=== PATIENT | male | born 1940 | race African-American/Black ===

== ENCOUNTER 2017-01-02 17:03 | Inpatient (IN) | payer MEDICARE, BC ==
[~2017-01-02] VITALS: Ht 175.3 cm; Wt 104.6 kg
[~2017-01-02 17:03] MED LIST: ASPI-630 PO; ATOR10TA60 PO; FENO160T PO; LISI-338 PO; LISI1TAB7 PO; METF750T2 PO; NAPR500T3 PO
[2017-01-02 17:49] LABS: BASO # 0.1 x10^3/uL (0.0-0.2); BASO % 1 % (0-3); EOS % 2 % (0-3); HEMATOCRIT 37.9 % (39.0-53.0); HEMOGLOBIN 12.8 g/dL (13.0-17.5); LYMPH # 3.4 x10^3/uL (1.0-4.8); LYMPH % 38 % (24-48); MEAN CORPUSCULAR HEMOGLOBIN 27 pg (25-35); MEAN CORPUSCULAR HGB CONC 34 g/dL (31-37); MEAN CORPUSCULAR VOLUME 79 fL (79-100); MONO % 10 % (0-9); NEUT % 49 % (31-73); PLATELET COUNT 254 x10^3/uL (140-400); RED BLOOD COUNT 4.82 x10^6/uL (4.30-5.70); RED CELL DISTRIBUTION WIDTH 16.2 % (11.5-14.5); WHITE BLOOD COUNT 8.9 x10^3/uL (4.0-11.0)
--- NOTE | 2017-01-02 17:55 | PHYS DOC ---
Past Medical History Past Medical History: Diabetes-Type II, Hypertension, Other Additional Past Medical Histor: HERNIA Past Surgical History: Angioplasty, Appendectomy, Other Additional Past Surgical Histo: CARDIAC STENTS Additional Information: SMOKES CIGARS SOMETIMES Alcohol Use: None Drug Use: None Adult General Chief Complaint Chief Complaint: SLURRED SPEECH HPI HPI 76-year-old morbidly obese -[place] male with history of tobacco elevated lipids hypertension type 2 diabetes with no insulin use and coronary artery disease with one stent no prior history of stroke now presents to the emergency department after an episode of speech changes. The health enjoying some time in this family when he suddenly perceived dysarthria and difficulty speaking. Words out but the words were not normal. Patient did not have an altered mental status and denies other focal neurologic deficit. No numbness or weakness normal strength sensation and use of extremities. Current baseline. Patient has never had a stroke workup or prior TIA. He does still smoke. No other complaints recent illness or prodromal symptoms. Review of Systems Review of Systems Constitutional: Denies fever or chills [] Eyes: Denies change in visual acuity, redness, or eye pain [] HENT: Denies nasal congestion or sore throat [] Respiratory: Denies cough or shortness of breath [] Cardiovascular: No additional information not addressed in HPI [] GI: Denies abdominal pain, nausea, vomiting, bloody stools or diarrhea [] : Denies dysuria or hematuria [] Musculoskeletal: Denies back pain or joint pain [] Integument: Denies rash or skin lesions [] Neurologic: Per history of present illness Endocrine: Denies polyuria or polydipsia [] Current Medications Current Medications Current Medications Medications (Trade) Dose Ordered Sig/Kin Start Time Stop Time Status Last Admin Dose Admin Aspirin (Children'S Aspirin) 324 mg 1X ONCE 01/02/17 19:30 01/02/17 19:31 DC 01/02/17 19:42 324 MG Naproxen (Naprosyn) 500 mg PRN Q6HRS PRN 01/02/17 19:15 Sodium Chloride 500 ml @ 500 mls/hr 1X ONCE 01/02/17 18:00 01/02/17 18:59 DC 01/02/17 17:47 500 MLS/HR Allergies Allergies Allergies Coded Allergies Type Severity Reaction Last Updated Verified No Known Drug Allergies 10/14/13 No Physical Exam Physical Exam [place] obese elderly male in no acute distress alert communicative and appropriate. Nonfocal neurologic exam including full cranial nerve exam. Normal symmetrical strength sensation and reflexes. Remainder of exam is benign Constitutional: Well developed, well nourished, no acute distress, non-toxic appearance. [] HENT: Normocephalic, atraumatic, bilateral external ears normal, oropharynx mildly dry, no oral exudates, nose normal. [] Eyes: PERRLA, EOMI, conjunctiva normal, no discharge. [] Neck: Normal range of motion, no tenderness, supple, no stridor. [] Cardiovascular:Heart rate regular rhythm, no murmur [] Lungs & Thorax: Bilateral breath sounds clear to auscultation [] Abdomen: Bowel sounds normal, soft, no tenderness, no masses, no pulsatile masses. [] Skin: Warm, dry, no erythema, no rash. [] Back: No tenderness, no CVA tenderness. [] Extremities: No tenderness, no cyanosis, no clubbing, ROM intact, no edema. [] Neurologic: Alert and oriented X 3, normal motor function, normal sensory function, no focal deficits noted. Baseline speech per family Psychologic: Affect normal, judgement normal, mood normal. [] Current Patient Data Vital Signs Vital Signs Date Time Temp Pulse Resp B/P (MAP) Pulse Ox O2 Delivery O2 Flow Rate FiO2 01/02/17 19:07 76 170/79 (109) 100 Room Air 01/02/17 17:03 97.6 18 97.6 Lab Values Laboratory Tests Test 01/02/17 17:20 White Blood Count 8.9 x10^3/uL (4.0-11.0) Red Blood Count 4.82 x10^6/uL (4.30-5.70) Hemoglobin 12.8 g/dL (13.0-17.5) L Hematocrit 37.9 % (39.0-53.0) L Mean Corpuscular Volume 79 fL (79-100) Mean Corpuscular Hemoglobin 27 pg (25-35) Mean Corpuscular Hemoglobin Concent 34 g/dL (31-37) Red Cell Distribution Width 16.2 % (11.5-14.5) H Platelet Count 254 x10^3/uL (140-400) Neutrophils (%) (Auto) 49 % (31-73) Lymphocytes (%) (Auto) 38 % (24-48) Monocytes (%) (Auto) 10 % (0-9) H Eosinophils (%) (Auto) 2 % (0-3) Basophils (%) (Auto) 1 % (0-3) Neutrophils # (Auto) 4.3 x10^3uL (1.8-7.7) Lymphocytes # (Auto) 3.4 x10^3/uL (1.0-4.8) Monocytes # (Auto) 0.9 x10^3/uL (0.0-1.1) Eosinophils # (Auto) 0.2 x10^3/uL (0.0-0.7) Basophils # (Auto) 0.1 x10^3/uL (0.0-0.2) Prothrombin Time 12.8 SEC (11.7-14.0) Prothrombin Time INR 1.0 (0.8-1.1) PTT 32 SEC (24-38) Sodium Level 142 mmol/L (136-145) Potassium Level 4.0 mmol/L (3.5-5.1) Chloride Level 106 mmol/L (98-107) Carbon Dioxide Level 29 mmol/L (21-32) Anion Gap 7 (6-14) Blood Urea Nitrogen 19 mg/dL (8-26) Creatinine 1.0 mg/dL (0.7-1.3) Estimated GFR (Cockcroft-Gault) 87.7 BUN/Creatinine Ratio 19 (6-20) Glucose Level 206 mg/dL (70-99) H Calcium Level 10.0 mg/dL (8.5-10.1) Total Bilirubin 0.3 mg/dL (0.2-1.0) Aspartate Amino Transferase (AST) 18 U/L (15-37) Alanine Aminotransferase (ALT) 18 U/L (16-63) Alkaline Phosphatase 76 U/L (46-116) Troponin I Quantitative 0.028 ng/mL (0.000-0.055) Total Protein 7.0 g/dL (6.4-8.2) Albumin 3.5 g/dL (3.4-5.0) Albumin/Globulin Ratio 1.0 (1.0-1.7) Laboratory Tests 01/02/17 17:20 Laboratory Tests 01/02/17 17:20 EKG EKG EKG normal sinus rhythm at 53 left axis deviation no STEMI interpreted by me [] Radiology/Procedures Radiology/Procedures Portable chest x-ray CT of the head without contrast [] Course & Med Decision Making Course & Med Decision Making Pertinent Labs and Imaging studies reviewed. (See chart for details) Signs and symptoms consistent with transient ischemic attack in a patient with no prior history of stroke or TIA. He does have multiple risk factors and states he is compliant with his medications. Patient is returned to baseline with a nonfocal neurologic exam. Full workup pending including lab CT and chest x-ray. EKG unremarkable as stated above. Anticipate admission for full TIA workup and if CT is unremarkable with no evidence of bleed, Aspirin will be given. CT of the head unremarkable. Case discussed with capsule. Dr. Martinez is aware of history and findings and agrees with inpatient admission to his service for full stroke workup. [] Dragon Disclaimer Dragon Disclaimer This electronic medical record was generated, in whole or in part, using a voice recognition dictation system. Departure Departure Impression: Primary Impression: TIA (transient ischemic attack) Disposition: ADMITTED INPATIENT Admitting Physician: Nayely Martinez Condition: STABLE BRIAN BALL MD Jan 02, 2017 17:55
[2017-01-02 18:00] LABS: PROTHROMBIN TIME PATIENT 12.8 SEC (11.7-14.0)
[2017-01-02] MEDS ORDERED: IV NORMAL SALINE 500ML BAG 500 ML IV ONE (18:00)
--- NOTE | 2017-01-02 18:15 | RAD ---
CT HEAD WO CONTRAST dated 01/02/2017 5:50 PM Indication: Slurred speech Comparison: No comparison is available. Technique: Contiguous axial imaging of the head performed from skull base to vertex. One or more of the following individualized dose reduction techniques were utilized for this examination: 1. Automated exposure control 2. Adjustment of the mA and/or kV according to patient size 3. Use of iterative reconstruction technique Findings: Ventricles and sulci are mildly prominent for age. No midline shift or mass effect. Mild to moderate patchy low density in the deep/subcortical periventricular white matter. No hemorrhage or extra-axial collection. Posterior fossa and brainstem unremarkable. Visualized paranasal sinuses and mastoid air cells are clear. Remote-appearing medial orbital blowout fracture on the right. No acute calvarial abnormality. IMPRESSION: 1. No evidence of acute intracranial hemorrhage or mass. 2. Mild chronic small vessel ischemic changes and atrophy. Electronically signed by: Cy Stubbs MD (01/02/2017 6:12 PM)
[2017-01-02 18:25] LABS: GFR 87.7
[2017-01-02 18:31] LABS: ALBUMIN 3.5 g/dL (3.4-5.0); TOTAL BILIRUBIN 0.3 mg/dL (0.2-1.0)
[2017-01-02] MEDS ORDERED: NAPROXEN 500 MG TABLET PO PRN (19:15)
[2017-01-02] MEDS ORDERED: ASPIRIN CHEWABLE 81 MG TABLET. PO ONE (19:30)
[2017-01-02] MEDS: LISINOPRIL 5 MG TABLET. PO SCH (20:44)
[2017-01-02] MEDS ORDERED: ATORVASTATIN CALCIUM 10 MG TABLET. PO SCH (21:00)
[2017-01-02 21:21] VITALS: BP 151/81
--- NOTE | 2017-01-02 22:11 | HP ---
ADMIT DATE: 01/02/2017 CHIEF COMPLAINT: Slurred speech. HISTORY OF PRESENT ILLNESS: The patient is a pleasant, elderly, -[place]ian male, who had weakness, slurred speech earlier rated 7/10. He has some associated anxiety and weakness. He presented to the ER, he is on daily aspirin. The CAT scan of his brain really has small vessel disease and atrophy. His symptoms are starting to resolve, we suspect he had a TIA. I discussed the case with the ER physician and his daughter ____. We are going to admit the patient and consult Neurology. PAST MEDICAL HISTORY: Hypertension, diabetes and hyperlipidemia. ALLERGIES: None. FAMILY HISTORY: Diabetes. SOCIAL HISTORY: Does not drink, smoke or take drugs. He was in the . MEDICATIONS: Reviewed, please refer to the MRAD. REVIEW OF SYSTEMS: GENERAL: No history of weight change, weakness or fevers. SKIN: No bruising, hair changes or rashes. EYES: No blurred, double or loss of vision. NOSE AND THROAT: No history of nosebleeds, hoarseness or sore throat. HEART: No history of palpitations, chest pain or shortness of breath on exertion. LUNGS: Denies cough, hemoptysis, wheezing or shortness of breath. GASTROINTESTINAL: Denies changes in appetite, nausea, vomiting, diarrhea or constipation. GENITOURINARY: No history of frequency, urgency, hesitancy or nocturia. NEUROLOGIC: He complains weakness ____ feeling better. PSYCHIATRIC: No history of panic, anxiety or depression. ENDOCRINE: No history of heat or cold intolerance, polyuria or polydipsia. EXTREMITIES: Denies muscle weakness, joint pain, pain on walking or stiffness. PHYSICAL EXAMINATION: VITAL SIGNS: Temperature afebrile, pulse 92, respirations 18, blood pressure 111/68, O2 sat 96% on room air. GENERAL: He is alert, cooperative, very pleasant. His daughter is present. She is a good support for him. She is quite anxious about his care. HEART: Distant S1, S2. LUNGS: Clear. ABDOMEN: Soft, positive bowel sounds. EXTREMITIES: 1+ edema. SKIN: No rashes. PSYCHIATRIC: Stable. VASCULAR: Good capillary refill. ENDOCRINE: No thyromegaly. LYMPHATICS: No cervical nodes. HEMATOPOIETIC: No bruising. LABORATORY DATA: White count 9, hemoglobin 12.8, platelets 254. Electrolytes are normal. Troponin 0.028. CT of the head shows atrophy and small vessel disease. ASSESSMENT AND PLAN: Probable transient ischemic attack. The patient has been admitted. We will consult neurology, PT, OT. Daily labs, resume home medicines, but I held his metformin, because he probably has some contrast. PROGNOSIS: Guarded. NIAL Yulisa MAY DO DR: DONG/malgorzata JOB#: [id number] / [id number] OTF Uriostegui MD
[2017-01-02 23:09] VITALS: BP 171/84
[2017-01-03 03:04] VITALS: BP 148/71
--- NOTE | 2017-01-03 04:24 | ACF ---
Admission Forms Criteria TELEMETRY CARE Telemetry Admission Guidelines (Place 'X' for any and all applicable criteria): Admission to telemetry [A] may be indicated for ANY ONE of the following(1)(2)(3 )(4)(5): [ ]I. Cardiac disease, including ANY ONE of the following (9)(10)(11)(12)(13 ): [ ]a) Postacute UT [ ]b) Low-risk patients with ST-segment elevation UT who have undergone successful percutaneous coronary intervention [ ]c) Unstable angina [ ]d) Suspected UT (until it is ruled out) [ ]e) Post cardiac surgery (first 48 to 72 hours unless complications occur) [ ]f) Acute arrhythmias (including significant tachycardia or bradycardia) [B] [ ]g) Firing of an implantable cardioverter defibrillator [C] [ ]h) Suspected pacemaker or implantable cardioverter defibrillator malfunction (10) [ ]i) New administration or adjustment of an antiarrhythmic drug [D ] [ ]j) Child admitted for acute congestive heart failure [ ]j) Long QT syndrome [ ]k) Advanced heart block (eg, second-degree Mobitz type II, third- degree heart block) [ ]l) Acute myocarditis or pericarditis [ ]m) Short-term (ambulatory or inpatient) monitoring after a cardiac procedure as indicated by ANY ONE of the following [E]: [ ]i) Electrophysiologic studies [ ]ii) Percutaneous coronary intervention with stent placement [ ]iii) Pacemaker placement with cardiac conduction defect [ ]iv) Implantable cardiac defibrillator placement [ ]II. Drug overdose or poisoning with substance that causes arrhythmias or QT prolongation (eg, phenothiazines, sympathomimetic agents, cyclic antidepressants, digitalis, antiarrhythmic drugs)(15) [ ]III. Short-term (ambulatory or inpatient) monitoring after therapeutic or diagnostic procedure requiring conscious sedation or anesthesia (eg, endoscopy, elective cardioversion) [X]IV. Acute cerebrovascular even[F](18) [ ]V. Massive blood transfusion (eg, at least 10 units of packed red blood cells in 24 hours) [ ]. Variceal bleeding after endoscopy, sclerotherapy, or IV vasopressin [ ]VII. Uncorrected electrolyte abnormalities associated with an increased risk of dangerous arrhythmia [G]; examples include [ ]a) Hyperkalemia with attributable ECG changes [ ]b) Potassium greater than 6.5 mmol/L (mEq/L) in a patient without history of chronic renal disease [ ]c) Prolonged QT attributed to hypokalemia, hypomagnesemia, or hypocalcemia [ ]VIII.Unexplained syncope or other neurologic event suspected of being due to arrhythmia due to a finding that increases risk; examples include(19)(20)(21): [ ]a) High-risk ECG findings (eg, bifascicular block, bradycardia, abnormal QT interval, ventricular pre- excitation) [ ]b) History of previous syncope due to arrhythmia [ ]c) Abnormal ventricular function (eg, reduced ejection fraction ) [ ]d) Exertional or supine syncope [ ]e) Concerning syncope characteristics (eg, sudden loss of consciousness without prodrome) [ ]f) Family history of sudden [ ]g) Use of arrhythmogenic medication [ ]h) Suspected cardiac ischemia [ ]i) Known channelopathy (eg, long QT syndrome, Brugada syndrome, or catecholaminergic paroxysmal ventricular tachycardia) [ ]j) Known structural heart disease (eg, hypertrophic cardiomyopathy , severe valvular disease) [ ]k) Palpitations preceding syncope The original [employer] content created by [employer] has been revised. The portions of the content which have been revised are identified through the use of italic text or in bold, and [facility] has neither reviewed nor approved the modified material. All other unmodified content is copyright [employer]. Please see references footnoted in the original [employer] edition 2016 Admission Criteria Met?: Yes TRACY RICHARDSON Jan 03, 2017 04:24
[2017-01-03 07:14] VITALS: BP 102/55
[2017-01-03] MEDS: LISINOPRIL 5 MG TABLET. PO SCH (08:39)
--- NOTE | 2017-01-03 08:50 | EKG ---
[facility] [address] [place] [address] Test Date: 2017-01-02 Test Time: 17:33:11 Pat Name: GORAN MORALES Department: Room: Gender: M Teaching Manager: : 1940 Requested By: BRIAN BALL Order Number: [id number] Reading MD: Measurements Intervals [place] Rate: 83 P: 53 MI: 178 QRS: -56 QRSD: 122 T: 12 QT: 380 QTc: 452 Interpretive Statements SINUS RHYTHM ABNORMAL LEFT AXIS DEVIATION LEFT ANTERIOR FASCICULAR BLOCK LEFT VENTRICULAR HYPERTROPHY QRS(T) CONTOUR ABNORMALITY CANNOT RULE OUT ANTEROSEPTAL MYOCARDIAL DAMAGE CANNOT RULE OUT INFERIOR MYOCARDIAL DAMAGE RI6.01 Unconfirmed report No previous ECG available for comparison
[2017-01-03] MEDS ORDERED: ASPIRIN CHEWABLE 81 MG TABLET. PO SCH (09:00)
[2017-01-03 11:01] VITALS: BP 108/65
[2017-01-03] MEDS ORDERED: GABA-586 PO (12:20)
--- NOTE | 2017-01-03 12:39 | PDOC2 ---
NEUROLOGY CONSULT Date of Admission Date of Admission DATE: 01/03/17 TIME: 12:33 Reason for Consult Reason for Consult: IMPRESSION: TIA, most likely. Slurred speech, weakness and confusion, all resolved. HTN HLD DM CAD, s/p stent placement. Smoking. Obesity. RECOMMENDATIONS/PLAN: Continue ASA, increased from 81 mg to 325 mg daily. Continue Lipitor HS. Brain MRI w/o contrast, the patient and family wanted to do it as outpatient basis. Order given them. FU with PCP. FU with Neurology after MRI. Discussed with him and his family in detail at bedside. HCT: Negative for acute findings. Echo: Unremarkable. HISTORY OF THE PRESENT ILLNESS: 76-y-old AA male patient with above medical diseases had symptoms of slurred speech for about 2 minutes per his son. The patient stated he had weakness in his UE bilaterally at that time, but resolved in a few minutes. His LE were not affected. His noted some mental status changes as confusion but resolved not long after. No recurrent symptoms since. PAST MEDICAL HISTORY: Please see above. PAST SURGERY HISTORY: Cardiac stent placement Tonsillectomy ALLERGY: Reviewed. MEDICATIONS: Refer to [facility] FAMILY HISTORY: Non contributory. SOCIAL HISTORY: Lives at home. Denies drinking and illicit drug use. He smokes 4-5 cigars a day for many years than he can remember. REVIEW OF SYSTEMS: Constitutional: No malnutrition, weight loss, cachexia. Head: No traumatic brain or head injury. Skin: No edema, or rash. Ear: No infection. Eyes: No vision loss or color blindness. Nose: No bleeding or purulent discharges. Hearing: mild hearing decrease. Neck: No injury. Cardiac: CAD, s/p stent placement, HTN, HLD. Pulmonary: No pneumonia, COPD. GI: No GI ulcer, GI bleeding. Urinary/genital: UTI. Endocrinologic: Diabetes Mellitus, obesity. Skeletomuscular: No muscular atrophy, deformity. Neurological: see HP. Psychiatric: Denies drug use/abuse. Otherwise, not [id number] review of systems. PHYSICAL EXAMINATION: General appearance is in no acute distress. HEENT: Normocephalic and nontraumatic. Eyes, nose, ears, and throat are unremarkable. Neck is supple. No lymphadenopathy. No bruits are heard over the carotid artery. No crepitus. Cardiovascular: S1, S2, regular rate and rhythm. Pulmonary: Clear to auscultation bilaterally. Abdomen: Bowel sounds are positive. Abdomen is soft, nontender, and nondistended. Extremities: No rash, lesions, or edema. No restriction of range of motion NEUROLOGICAL EXAMINATION: Alert Oriented to time, place and person. Speech normal. PERRL. EOMI. CN: no focal findings. Muscle tone: within normal. Muscle strength: 5 DTR: 2 Plantar reflex: Flexor response bilaterally Gait: At baseline normal. Sensory exam: no abnormal findings. No acute cerebellar signs elicited. F-T-N test accurate bilaterally. RECOMMENDATIONS/PLAN: HISTORY OF THE PRESENT ILLNESS: PAST MEDICAL HISTORY: Please see above. PAST SURGERY HISTORY: Pacemaker Placement, S/P CABG, Tonsillectomy, Appendectomy , Cholecystectomy, Hysterectomy, Hernia Repair, Neck, Shoulder, Knee surgery, No major surgery recently. ALLERGY: NKDA Unknown MEDICATIONS: Refer to [facility] FAMILY HISTORY: HTN, HLD, DM, CAD, PD, Dementia, Non contributory. SOCIAL HISTORY: Lives alone. Lives in retirement. Denies smoking, drinking, and illicit drug use. He She smokes pack of cigarettes a day for years. He She drinks OZ alcohol a day for years. REVIEW OF SYSTEMS: Constitutional: No malnutrition, weight loss, cachexia. Head: No traumatic brain or head injury. Skin: No edema, or rash. Ear: No infection, tinnitus. Eyes: No vision loss or color blindness. Nose: No bleeding or purulent discharges. Hearing: No hearing decrease. Neck: No injury. Breast: No history of cancer, masses,or discharges. Cardiac: No [place], arrhythmia,claudication, CAD, s/p CABG, AFib, Pacemaker Placement, HTN, HLD. Pulmonary: No pneumonia, COPD. GI: No GI ulcer, GI bleeding, GERD. Urinary/genital: No dysuria, hematuria, incontinence, urinary retention, UTI. Endocrinologic: No cousin face, craniofacial dysmorphism, polydactyly, goiter, Diabetes Mellitus, hypothyroidism, obesity, morbid obesity. Skeletomuscular: No muscular atrophy, deformity, Generalized weakness. Neurological: see HP. Psychiatric: Denies drug use/abuse. Otherwise, not [id number] review of systems. PHYSICAL EXAMINATION: General appearance is in no acute distress. HEENT: Normocephalic and nontraumatic. Eyes, nose, ears, and throat are unremarkable. Neck is supple. No lymphadenopathy. No bruits are heard over the carotid artery. No crepitus. Cardiovascular: S1, S2, regular rate and rhythm. Pulmonary: Clear to auscultation bilaterally. Abdomen: Bowel sounds are positive. Abdomen is soft, nontender, and nondistended. Extremities: No rash, lesions, or edema. No restriction of range of motion NEUROLOGICAL EXAMINATION: Alert Oriented to time, place and person. PERRL. EOMI. CN: no focal findings. Muscle tone: within normal. Muscle strength: 5 DTR: 2 Plantar reflex: Flexor/Neutral response bilaterally Gait: not examined in bed. At baseline normal. Sensory exam: no abnormal findings. No cerebellar signs elicited. F-T-N test accurate. Current Medications Current Medications Current Medications Sodium Chloride 500 ml @ 500 mls/hr 1X ONCE IV Last administered on 17:47; Start 01/02/17 at 18:00; Stop 01/02/17 at 18:59; Status DC Aspirin (Children'S Aspirin) 81 mg DAILY PO Last administered on 01/03/17 08: 36; Start 01/03/17 at 09:00 Atorvastatin Calcium (Lipitor) 10 mg HS PO ; Start 01/02/17 at 21:00 Lisinopril (Prinivil) 5 mg DAILY PO Last administered on 01/03/17 08:39; Start 01/02/17 at 20:00 Naproxen (Naprosyn) 500 mg PRN Q6HRS PRN PO PAIN; Start 01/02/17 at 19:15 Aspirin (Children'S Aspirin) 324 mg 1X ONCE PO Last administered on 01/02/17 19:42; Start 01/02/17 at 19:30; Stop 01/02/17 at 19:31; Status DC Active Scripts Active Reported Neurontin (Gabapentin) 300 Mg Capsule 300 Mg PO DAILY Lisinopril 5 Mg Tablet 5 Mg PO DAILY Naproxen 500 Mg Tablet 500 Mg PO PRN Q6HRS Fenofibrate 160 Mg Tablet 160 Mg PO Atorvastatin Calcium 10 Mg Tablet 10 Mg PO HS Aspirin 81 Mg Tab.chew 81 Mg PO DAILY Metformin Hcl Er (Metformin Hcl) 750 Mg Tab.er.24h 750 Mg PO DAILY Allergies Allergies: Coded Allergies: No Known Drug Allergies (Unverified , 10/14/13) Vitals VITALS Vital Signs Date Time Temp Pulse Resp B/P (MAP) Pulse Ox O2 Delivery O2 Flow Rate FiO2 01/03/17 11:01 97.9 71 20 108/65 (79) 96 Room Air 97.9 Labs Labs Laboratory Tests Test 01/02/17 17:20 01/03/17 07:19 01/03/17 11:30 White Blood Count 8.9 x10^3/uL (4.0-11.0) Red Blood Count 4.82 x10^6/uL (4.30-5.70) Hemoglobin 12.8 g/dL (13.0-17.5) Hematocrit 37.9 % (39.0-53.0) Mean Corpuscular Volume 79 fL (79-100) Mean Corpuscular Hemoglobin 27 pg (25-35) Mean Corpuscular Hemoglobin Concent 34 g/dL (31-37) Red Cell Distribution Width 16.2 % (11.5-14.5) Platelet Count 254 x10^3/uL (140-400) Neutrophils (%) (Auto) 49 % (31-73) Lymphocytes (%) (Auto) 38 % (24-48) Monocytes (%) (Auto) 10 % (0-9) Eosinophils (%) (Auto) 2 % (0-3) Basophils (%) (Auto) 1 % (0-3) Neutrophils # (Auto) 4.3 x10^3uL (1.8-7.7) Lymphocytes # (Auto) 3.4 x10^3/uL (1.0-4.8) Monocytes # (Auto) 0.9 x10^3/uL (0.0-1.1) Eosinophils # (Auto) 0.2 x10^3/uL (0.0-0.7) Basophils # (Auto) 0.1 x10^3/uL (0.0-0.2) Prothrombin Time 12.8 SEC (11.7-14.0) Prothromb Time International Ratio 1.0 (0.8-1.1) Activated Partial Thromboplast Time 32 SEC (24-38) Sodium Level 142 mmol/L (136-145) Potassium Level 4.0 mmol/L (3.5-5.1) Chloride Level 106 mmol/L (98-107) Carbon Dioxide Level 29 mmol/L (21-32) Anion Gap 7 (6-14) Blood Urea Nitrogen 19 mg/dL (8-26) Creatinine 1.0 mg/dL (0.7-1.3) Estimated GFR (Cockcroft-Gault) 87.7 BUN/Creatinine Ratio 19 (6-20) Glucose Level 206 mg/dL (70-99) Calcium Level 10.0 mg/dL (8.5-10.1) Total Bilirubin 0.3 mg/dL (0.2-1.0) Aspartate Amino Transf (AST/SGOT) 18 U/L (15-37) Alanine Aminotransferase (ALT/SGPT) 18 U/L (16-63) Alkaline Phosphatase 76 U/L (46-116) Troponin I Quantitative 0.028 ng/mL (0.000-0.055) Total Protein 7.0 g/dL (6.4-8.2) Albumin 3.5 g/dL (3.4-5.0) Albumin/Globulin Ratio 1.0 (1.0-1.7) Glucose (Fingerstick) 145 mg/dL (70-99) 179 mg/dL (70-99) Laboratory Tests Test 01/02/17 17:20 01/03/17 07:19 01/03/17 11:30 White Blood Count 8.9 x10^3/uL (4.0-11.0) Red Blood Count 4.82 x10^6/uL (4.30-5.70) Hemoglobin 12.8 g/dL (13.0-17.5) Hematocrit 37.9 % (39.0-53.0) Mean Corpuscular Volume 79 fL (79-100) Mean Corpuscular Hemoglobin 27 pg (25-35) Mean Corpuscular Hemoglobin Concent 34 g/dL (31-37) Red Cell Distribution Width 16.2 % (11.5-14.5) Platelet Count 254 x10^3/uL (140-400) Neutrophils (%) (Auto) 49 % (31-73) Lymphocytes (%) (Auto) 38 % (24-48) Monocytes (%) (Auto) 10 % (0-9) Eosinophils (%) (Auto) 2 % (0-3) Basophils (%) (Auto) 1 % (0-3) Neutrophils # (Auto) 4.3 x10^3uL (1.8-7.7) Lymphocytes # (Auto) 3.4 x10^3/uL (1.0-4.8) Monocytes # (Auto) 0.9 x10^3/uL (0.0-1.1) Eosinophils # (Auto) 0.2 x10^3/uL (0.0-0.7) Basophils # (Auto) 0.1 x10^3/uL (0.0-0.2) Prothrombin Time 12.8 SEC (11.7-14.0) Prothromb Time International Ratio 1.0 (0.8-1.1) Activated Partial Thromboplast Time 32 SEC (24-38) Sodium Level 142 mmol/L (136-145) Potassium Level 4.0 mmol/L (3.5-5.1) Chloride Level 106 mmol/L (98-107) Carbon Dioxide Level 29 mmol/L (21-32) Anion Gap 7 (6-14) Blood Urea Nitrogen 19 mg/dL (8-26) Creatinine 1.0 mg/dL (0.7-1.3) Estimated GFR (Cockcroft-Gault) 87.7 BUN/Creatinine Ratio 19 (6-20) Glucose Level 206 mg/dL (70-99) Calcium Level 10.0 mg/dL (8.5-10.1) Total Bilirubin 0.3 mg/dL (0.2-1.0) Aspartate Amino Transf (AST/SGOT) 18 U/L (15-37) Alanine Aminotransferase (ALT/SGPT) 18 U/L (16-63) Alkaline Phosphatase 76 U/L (46-116) Troponin I Quantitative 0.028 ng/mL (0.000-0.055) Total Protein 7.0 g/dL (6.4-8.2) Albumin 3.5 g/dL (3.4-5.0) Albumin/Globulin Ratio 1.0 (1.0-1.7) Glucose (Fingerstick) 145 mg/dL (70-99) 179 mg/dL (70-99) SURESH CASTELLANO MD Jan 03, 2017 12:39
--- NOTE | 2017-01-03 14:23 | DS ---
DATE OF DISCHARGE: 01/03/2017 ADMISSION DIAGNOSIS: Transient ischemic attack. DISCHARGE DIAGNOSIS: Resolving transient ischemic attack. HOSPITAL COURSE: The patient is a pleasant 76-year-old male presented with TIA symptoms with slurred speech. He was admitted. We did an MRI, it is basically normal other than disease and atrophy, which was normal for his age. His symptoms have resolved. He is doing well this morning. I examined him, his heart sounds were normal. His lungs were clear. His abdomen was soft. His extremities have no edema. Endocrine, no thyromegaly. We plan to discharge home. DISPOSITION: Home. ACTIVITY: As tolerated. DIET: Low sodium. MEDICATIONS: Please see the MRAD. TOTAL TIME: 36 minutes. REDDY MAY DO DR: [email or web address]/malgorzata JOB#: [id number] / [id number]
== END 2017-01-03 12:35 | disposition home or self-care (01) | DRG 69 ==
LOC: ER 17:03 → 6 SOUTH 19:45
PROVIDERS: ADMIT Internal Medicine; ATTEND Internal Medicine
DX: G45.9 Transient cerebral ischemic attack, unspecified (principal); E78.5 Hyperlipidemia, unspecified; E66.01 Morbid (severe) obesity due to excess calories; F41.9 Anxiety disorder, unspecified; I10 Essential (primary) hypertension; F17.200 Nicotine dependence, unspecified, uncomplicated; I25.10 Atherosclerotic heart disease of native coronary artery without angina pectoris; E11.51 Type 2 diabetes mellitus with diabetic peripheral angiopathy without gangrene; R47.1 Dysarthria and anarthria; Z79.82 Long term (current) use of aspirin; Z82.49 Family history of ischemic heart disease and other diseases of the circulatory system; Z95.0 Presence of cardiac pacemaker; Z95.1 Presence of aortocoronary bypass graft; Z95.5 Presence of coronary angioplasty implant and graft; Z83.3 Family history of diabetes mellitus; Z79.899 Other long term (current) drug therapy; Z79.1 Long term (current) use of non-steroidal anti-inflammatories (NSAID); Z79.2 Long term (current) use of antibiotics; Z90.49 Acquired absence of other specified parts of digestive tract; Z68.34 Body mass index [BMI] 34.0-34.9, adult
CPT/HCPCS: 36415; 70450; 80053; 82962; 84484; 85027; 85610; 85730; 93005; 96360; J7040; 99285-25